=== PATIENT | male | born 1970 ===

== ENCOUNTER 2024-04-16 10:15 | Emergency (ER) | payer MEDICAID, OTHER ==
[~2024-04-16] VITALS: Ht 172.7 cm; Wt 110.0 kg
[2024-04-16] MEDS: DOPamine 1600MCG/ML D5W 250 ML IV SCH (10:39)
[2024-04-16] MEDS: NOREPINEPHRINE 8 MG/250ML KIT 250 ML IV SCH (10:44)
--- NOTE | 2024-04-16 11:04 | DVH ---
EXAM: XR Chest, 1 View CLINICAL INDICATION: post cpr, intubation TECHNIQUE: Frontal view of the chest. COMPARISON: None FINDINGS: LUNGS AND PLEURAL SPACES: Pulmonary congestion and edema. Pneumonia cannot be excluded. No pneumot horax. HEART: Unremarkable. No cardiomegaly. MEDIASTINUM: Unremarkable. Normal mediastinal contour. BONES/JOINTS: Unremarkable. No acute fracture. TUBES, LINES AND DEVICES: The endotracheal tube (ETT) is in satisfactory position. Enteric tube ti p in the stomach. OTHER FINDINGS: . . IMPRESSION: Pulmonary congestion and edema. Pneumonia cannot be excluded.
--- NOTE | 2024-04-16 11:12 | ED.PDOC ---
CPR-HPI HPI Comments 51 y.o male presents to the ED via EMS with ongoing CPR. EMS reports patient was picked up from home, lives with roommate who last seen patient normal and well at 0300. Roommate went into his room this morning and found him unresponsive. EMS reported asystole rhythm on their arrival on scene, initiated CPR, gave 6 rounds of Epi and 2 lidocaine. EMS mentioned patient converted from Asystole to V-Fib, shocked him, went V-Tach briefly and shocked him a second time but went down to PEA. Downtime marked at 8 minutes by paramedics from scene to ED arrival at 1015. No past medical, surgical, social history of allergies reported as roommate did not have any information regarding patient's health. Chief Complaint: CPR Time Seen by MD: 10:15 Reviewed Notes: Nurses Notes, Hot Dip Plater Notes, Medications, Allergies Allergies: Coded Allergies: UNOBTAINABLE (Unverified , 04/16/24) Information Source: Emergency Med Personnel Mode of Arrival: EMS Timing: Hours Duration: Down time prior EMS: (unknnown), Total time prior hopital: (8 minutes) Onset: Unknown Available Hx: Unknown Inital rhythm: V-fib, V-tach, Asystole, PEA Treatment: CPR, Epinephrine Response: Transient return of pulse Associated signs and symptoms: Unknown Past Medical History PAST MEDICAL HISTORY: Unobtainable Surgical History: Unobtainable Family History Family History: Unobtainable Social History Smoker: Unobtainable Alcohol: Unobtainable Drugs: Unobtainable Lives In: Home Unable to Obtain due to: Altered Mental Status Physical Exam Exam Comments unresponsive, General Appearance: Other (unresponsive post CPR, spontaenous breathing absent) HEENT: Other (pupils fixed and dilated ) Neck: Other (intubated) Respiratory: Other (No spontaneous breathing, assisted ventilation with clear lung sounds bilaterally) Cardiovascular: Other (Palpable pulse with CPR, Obtain ROSC. EKG shown cardiac well motion ) Breast Exam: Deferred Gastrointestinal: No Organomegaly, No Pulsatile Mass Genitalia: Deferred Pelvic: Deferred Rectal: Rectal Exam not done Extremities: NOT DONE Neurologic: Other (Pupils fixed and dilated) Cerebellar Function: Other (No spontaneous movement ) Reflexes: Other (No spontaneous movemen) Skin: Pallor Lymphatic: NOT DONE Was a procedure done? 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 Emergent ) Risks/benefits/alt described: No (Patient is unresponsive, no family presented. Emergent ) Notes Procedure attempted, unsuccessful. Right internal jugular done assisted with Ultrasound. tip visible on ultrasound but it will collapse when penetrating. reattempt on the right femoral region but no venous output. No palpable pulse sterile protocol followed Intubation Indication: Altered Mental Status Prep: Preoxygenation Intubation Approach: Orotracheal Intubation size: cm (88) Informed consent obtained: No Risks/benefits/alt described: No Notes emt student intubated under my guidance. successful on the first pass, with CO2 detector activated, bilateral equal BS, no epigastric gurgling, cxr shows proper ET position. Differential Dx CPR Differential Diagnosis: Cardiopulmonary arrest, Cardiogenic shock, Dysrhythmia, Electrolyte disorder, Heart Block, Myocardial Infarction, Pneumothorax, Pulmonary Embolus, Respiratory Failure, Ruptured Aortic Aneurysm, Other (anoxic brain injury, intracranial bleed, overdose) X-Ray, Labs, Meds, VS Vital Signs Date Time Temp Pulse Resp B/P (MAP) Pulse Ox O2 Delivery O2 Flow Rate FiO2 04/16/24 13:09 55/23 04/16/24 12:00 68 04/16/24 11:59 68/35 04/16/24 11:52 67 18 94 Mechanical Ventilator+ 100 100 04/16/24 10:30 61 18 54/27 (36) 100 Lab Test 04/16/24 12:18 04/16/24 12:12 04/16/24 11:45 04/16/24 10:44 Range/Units Blood Gas Specimen Type Arterial Blood Gas Sample Site Left radial Blood Gas Patient Temperature 37.0 Arterial Blood Date Drawn [id number] Arterial Blood pH 6.837 *L 7.350-7.450 Arterial Blood Partial Pressure CO2 120.2 *H 35.0-48.0 mmHg Arterial Blood Partial Pressure O2 180.2 H 83.0-108.0 mmHg Arterial Blood HCO3 19.9 L 21.0-28.0 mmol/L Arterial Blood Oxygen Saturation 98.4 H 94.0-98.0 % Arterial Blood Base Excess -16.4 L -2.0-3.0 mmol/L Arterial Blood Oxyhemoglobin 96.7 94.0-98.0 % Arterial Blood Carboxyhemoglobin 1.1 0.5-1.5 % Arterial Blood Methemoglobin 0.6 0.0-1.5 % Tonio Test Modified Blood Gas Total Hemoglobin 13.70 13.5-17.5 g/dL Blood Gas Set Respiration Rate 18.0 Blood Gas Modality Vent - ac FiO2 % 100.0 Blood Gas Tidal Volume 500.0 Blood Gas PEEP or CPAP 5.0 Blood Gas Critical Value Read Back Yes Blood Gas Notified Whom lolita Fragoso Blood Gas Notified Time [id number] Blood Gas Notified By loulou Ricks POC Glucose 74 70-106 mg/dl Lactic Acid Level 14.2 *H 0.4-2.0 mmol/L Troponin I High Sensitivity 113 *H 48 </=54 ng/L White Blood Count 15.6 H 4.4-10.8 10^3/uL Red Blood Count 4.00 L 4.5-5.90 10^6/uL Hemoglobin 12.1 L 13.5-17.5 g/dL Hematocrit 38.5 L 41.0-53.0 % Mean Corpuscular Volume 96.2 80.0-100.0 fL Mean Corpuscular Hemoglobin 30.3 28.0-32.0 pg Mean Corpuscular Hemoglobin Concent 31.5 L 32.0-36.0 g/dL Red Cell Distribution Width 15.4 H 11.8-14.3 % Platelet Count 136 L 140-450 10^3/uL Mean Platelet Volume 8.2 6.9-10.8 fL Neutrophils (%) (Auto) 68.4 37.0-80.0 % Lymphocytes (%) (Auto) 24.1 10.0-50.0 % Monocytes (%) (Auto) 6.3 0.0-12.0 % Eosinophils (%) (Auto) 0.6 0.0-7.0 % Basophils (%) (Auto) 0.6 0.0-2.0 % Neutrophils # (Auto) 10.7 H 1.6-8.6 10 ^3/uL Lymphocytes # (Auto) 3.8 0.4-5.4 10 ^3/uL Monocytes # (Auto) 1.0 0-1.3 10 ^3/uL Eosinophils # (Auto) 0.1 0-0.8 10 ^3/uL Basophils # (Auto) 0.1 0-0.2 10 ^3/uL Nucleated Red Blood Cells 0.5 % Sodium Level 153 H 136-145 mmol/L Potassium Level 4.2 3.5-5.1 mmol/L Chloride Level 105 98-107 mmol/L Carbon Dioxide Level 24 20-31 mmol/L Anion Gap 24 H 5-15 Blood Urea Nitrogen 20 9-23 mg/dL Creatinine 1.75 H 0.700-1.30 mg/dL Glomerular Filtration Rate Calc 47 >90 mL/min BUN/Creatinine Ratio 11.4 10.0-20.0 Serum Glucose 79 74-106 mg/dL Calcium Level 8.4 L 8.7-10.4 mg/dL Total Bilirubin 0.6 0.2-1.0 mg/dL Aspartate Amino Transferase (AST) 5334 H 13-40 U/L Alanine Aminotransferase (ALT) 5020 H 7-40 U/L Alkaline Phosphatase 77 46-116 U/L Total Protein 5.1 L 5.7-8.2 g/dL Albumin 3.2 3.2-4.8 g/dL Test 04/16/24 10:33 Range/Units Urine Color Yellow Yellow Urine Clarity Clear Clear Urine pH 5.5 5.0-9.0 Urine Specific [place] 1.028 1.001-1.035 Urine Protein Trace H Negative Urine Ketones Trace Negative Urine Blood Negative Negative /uL Urine Nitrite Negative Negative Urine Bilirubin Negative Negative Urine Urobilinogen 2 H Negative mg/dL Urine Leukocyte Esterase Negative Negative /uL Urine RBC 3 0 - 3 /hpf Urine Microscopic WBC < 1 0-3 /HPF Urine Squamous Epithelial Cells Few <5 /hpf Urine Bacteria None seen None Seen /hpf Urine Hyaline Casts Few 0 - 2 /lpf Urine Mucus Few None Seen Urine Glucose 2+ H Normal mg/dL Urine Opiates Screen Neg NEGATIVE Urine Fentanyl Screen Pos NEGATIVE Urine Barbiturates Screen Neg NEGATIVE Urine Phencyclidine Screen Neg NEGATIVE Urine Amphetamines Screen Pos NEGATIVE Urine Benzodiazepines Screen Neg NEGATIVE Urine Cocaine Screen Pos NEGATIVE Urine Cannabinoids Screen Neg NEGATIVE Current Medications Medications (Trade) Dose Ordered Sig/Jared Route Start Time Stop Time Status Last Admin Dopamine HCl/ Dextrose 250 ml @ 20.625 mls/ hr Q12H8M IV 04/16/24 10:45 04/16/24 13:09 Dobutamine HCl/ Dextrose 250 ml @ 10.8 mls/hr Q23H9M IV 04/16/24 11:15 04/16/24 11:59 Time of 1ST Reevaluation: 10:36 Reevaluation 1ST: Unchanged (caridac monitor- sinus rhythm) Reevaluation 2ND: Unchanged (cardiac rhythm, - sinus rhythm) Patient Education/Counseling: Pt Unresponsive Family Education/Counseling: No Family Present Additional Information I reviewed the following notes from patient's past medical encounters: None available The following tests were ordered, and results were reviewed by me: (Labs, XY, EKG)- UA, EKG x3, Troponin x3, Drug screen, UA, PTT, CBC, CMP, [place] Catheter Additional Information was gathered from interviewing the following independent historians: Paramedics I reviewed and agreed with the following test results read by other providers: CT head and CXR I discussed treatment and results with medical personnel Discourse with epi and bicarb give. see code sheet pt was in asystole and PEA when arrived. we were able to obtain ROSC. however, pt remains critical and bp continuously drops, despit on being put on multiple pressors. he also shows evidenc fo systolic heart failure, so dobutamine was also added. in addition he has qualifiers for severe seposis, with shock, so sepsis criteria was also started the results shows that pt was on multiple drugs, which may have contributed to this event. per paramedics, he was last seen well at 3AM. if this were the case, he may have suffered anoxic brain injuries. he has multisystem failure, with heart failure, encephalopathy, renal failure, cardiac failure/arrest/ elevated troponin, liver failure, sever acidosis, hypernatremia, and respiratory failure with hypoxia, hypercapnia Sepsis Sepsis Reasesment Focused Exam Sepsis focused exam: focus exam completed (pt continues to remain unstable, with multiple organ failures), time: (1350) Departure 1 Departure Time of Disposition: 13:51 Impression: Primary Impression: Cardiac arrest Additional Impressions: Systolic heart failure Qualified Codes: I50.21 - Acute systolic (congestive) heart failure Severe sepsis Septic shock Respiratory failure Qualified Codes: J96.01 - Acute respiratory failure with hypoxia; J96.02 - Acute respiratory failure with hypercapnia Liver failure Qualified Codes: K72.01 - Acute and subacute hepatic failure with coma Renal failure Qualified Codes: N17.9 - Acute kidney failure, unspecified Encephalopathy Qualified Codes: G93.41 - Metabolic encephalopathy Hypernatremia Metabolic acidosis Elevated troponin Disposition: ADMITTED INPATIENT Admit to: ICU Condition: Critical Critical Care Note Critical Care Time?: Yes (45 min-critical care time only) Critical care comment: 75 mins of cc time Due to concerns for patients condition deteriorating, the care required my highest level of attention and readiness to intervene. I assessed the patient, reviewed the medical records, ordered the appropriate tests and treatments, then reassessed for results and responsiveness. I communicated with medical personnel and consultants and formulated a plan of care. Total critical care time excludes any procedures Heart Score Heart Score: Heart Score Response (Comments) Value History N/A 0 EKG N/A 0 Age N/A 0 Risk Factors N/A 0 Troponin N/A 0 Total 0 Stability Stability form required: No I personally scribed for CLAUDIO PEMBERTON MD ([facility]) on 04/16/24 at 11:11. Electronically submitted by Patricia Haq ([facility]). I personally scribed for [facility]UD[facility] on 04/16/24 at 11:12. Electronically submitted by Patricia Haq ([facility]). I personally scribed for CLAUDIO PEMBERTON MD ([facility]) on 04/16/24 at 13:02. Electronically submitted by Patricia Haq ([facility]). CLAUDIO PEMBERTON MD Apr 16, 2024 11:11
[2024-04-16] MEDS: SODIUM CHLORIDE 0.9% 2,200 ML IV ONE (11:20)
[2024-04-16] MEDS: EPINEPHrine HCL 1 MG/10 ML SYRG ONE (11:28)
[2024-04-16] MEDS: NOREPINEPHRINE 8 MG/250ML KIT 250 ML IV ONE (11:29)
[2024-04-16 11:35] LABS: Basophils # (auto) 0.1 10 ^3/uL (0-0.2); Basophils % (auto) 0.6 % (0.0-2.0); Eosinophils # (auto) 0.1 10 ^3/uL (0-0.8); Eosinophils % (auto) 0.6 % (0.0-7.0); Hematocrit 38.5 % (41.0-53.0); Hemoglobin 12.1 g/dL (13.5-17.5); Lymphocytes # (auto) 3.8 10 ^3/uL (0.4-5.4); Lymphocytes % (auto) 24.1 % (10.0-50.0); Mean Corpuscular Hemoglobin 30.3 pg (28.0-32.0); Mean Corpuscular Hgb Conc. 31.5 g/dL (32.0-36.0); Mean Corpuscular Volume 96.2 fL (80.0-100.0); Monocytes % (auto) 6.3 % (0.0-12.0); Neutrophils # (auto) 10.7 10 ^3/uL (1.6-8.6); Neutrophils % (auto) 68.4 % (37.0-80.0); Nucleated Red Blood Cells % 0.5 %; Platelet Count (auto) 136 10^3/uL (140-450); Red Cell Distribution Width 15.4 % (11.8-14.3); White Blood Cell 15.6 10^3/uL (4.4-10.8)
[2024-04-16 11:36] LABS: Albumin 3.2 g/dL (3.2-4.8); Alkaline Phosphatase 77 U/L (46-116); Anion Gap 24 (5-15); BUN/Creatinine Ratio 11.4 (10.0-20.0); Blood Urea Nitrogen 20 mg/dL (9-23); Carbon Dioxide 24 mmol/L (20-31); Chloride 105 mmol/L (98-107); Glucose 79 mg/dL (74-106); Potassium 4.2 mmol/L (3.5-5.1)
[2024-04-16 11:37] LABS: Bilirubin, Total 0.6 mg/dL (0.2-1.0)
[2024-04-16 11:49] LABS: Sodium 153 mmol/L (136-145)
[2024-04-16 11:50] LABS: Alanine Aminotransferase 5020 U/L (7-40); Aspartate Aminotransferase 5334 U/L (13-40); Calcium 8.4 mg/dL (8.7-10.4); Total Protein 5.1 g/dL (5.7-8.2)
[2024-04-16 11:51] LABS: Urine Bacteria None Seen /hpf (None Seen)
[2024-04-16 11:52] VITALS: PULSE 67; RESP 18; O2SAT 94
[2024-04-16] MEDS: DOBUTamine 1000MCG/ML 250 ML IV SCH (11:59)
[2024-04-16 12:21] LABS: Cocaine Screen, Urine Pos (NEGATIVE)
[2024-04-16 12:23] LABS: Amphetamine Screen, Urine Pos (NEGATIVE); Barbiturate Scree,Urine Neg (NEGATIVE); Benzodiazephine Screen, Urine Neg (NEGATIVE); Cannabinoid Screen, Urine Neg (NEGATIVE); Opiate Scree,Urine Neg (NEGATIVE); Phencyclidine Screen, Urine Neg (NEGATIVE)
[2024-04-16 12:28] LABS: Lactic Acid w/Reflex 14.2 mmol/L (0.4-2.0)
[2024-04-16 12:32] LABS: Urine Blood Negative /uL (Negative); Urine Clarity Clear (Clear); Urine Color Yellow (Yellow); Urine Hyaline Cast FEW /lpf (0 - 2); Urine Mucus FEW (None Seen); Urine Protein, UAD TRACE (Negative); Urine Specific Gravity 1.028 (1.001-1.035); Urine Squamous Epithelial Cell FEW /hpf (<5); Urine Urobilinogen 2 mg/dL (Negative); Urine WBC < 1 /HPF (0-3); Urine pH 5.5 (5.0-9.0)
[2024-04-16 12:32] LABS: Base Excess -16.4 mmol/L (-2.0-3.0)
[2024-04-16] MEDS: PHENYLEPHRINE IV 250 ML IV SCH (12:45)
[2024-04-16 14:00] VITALS: BP 183/116; PULSE 69; RESP 28; TEMP 89.4; O2SAT 89
[2024-04-16] MEDS ORDERED: SODIUM BICARB 50mEq/50ml Vial 150 ML in D5W 5% 1,000 ML IV ONE (14:00)
[2024-04-16] MEDS ORDERED: SODIUM BICARB 8.4% 50Meq/50ml SYR Vial IV ONE (14:00)
[2024-04-16] MEDS ORDERED: ACETYLCYSTEINE 200MG/ML IV SOL 15,000 MG in D5W 5% 250 ML IV ONE (14:00)
[2024-04-16] MEDS ORDERED: PIPERACILLIN-TAZO 4.5GM 100 ML IV ONE (14:00)
[2024-04-16] MEDS ORDERED: SODIUM CHLORIDE 0.9% 1,000 ML IV ONE (14:00)
[2024-04-16] MEDS: PIPERACILLIN-TAZO 4.5GM 100 ML IV ONE (14:45)
[2024-04-16] MEDS: SODIUM BICARB 50mEq/50ml Vial 50 ML in D5W/SOD CHL 0.45% 1,000 ML IV ONE (14:47)
[2024-04-16] MEDS ORDERED: ACETYLCYSTEINE 200MG/ML IV SOL 5,000 MG in D5W 5% 500 ML IV ONE (15:00)
--- NOTE | 2024-04-16 18:18 | RESUS ---
CODE BOBBI ASSESSSMENT History of Events History of Events: SECURED CODE BOBBI ARRIVED AT 1015 WITH EMS Initial Information Date: Apr 16, 2024 Time: 10:15 Arrest Witnessed: No CPR started by whom: EMS Pre-Hospital Care: ACLS Type of arrest: Cardiac, Adult, Unwitnessed Spontaneous Respirations: No Pulse Present: No Monitoring: ECG, Pulse Oximetry Crash Cart Opened and Supplies: Yes Airway Ventilation Breathing at Onset: Assisted Oxygen Delivery Method: Ambu-Bag Time of first Assisted Ventila: 10:15 Artificial Ventilation: Bag/Mask Intubation Time: 10:25 Intubation Size: 8.0 cuffed Intubated by: BRODIE KENNEY Intubated orally: Yes Tube secured at: 24 CO2 indicator used: Yes Confirmation: Auscultation, Exhaled CO2 Suctioning (Oral/Tracheal): Yes Circulation Circulation #1: Time: 10:16 Pulse Rate (adult): 0 Blood Pressure Systolic: 0 Blood Pressure Diastolic: 0 Circulation Comment: PEA Circulation #2: Time: 10:18 Pulse Rate (adult): 0 Blood Pressure Systolic: 0 Blood Pressure Diastolic: 0 Circulation Comment: PEA Circulation #3: Time: 10:20 Pulse Rate (adult): 0 Blood Pressure Systolic: 0 Blood Pressure Diastolic: 0 Circulation Comment: PEA Circulation #4: Time: 10:22 Pulse Rate (adult): 0 Blood Pressure Systolic: 0 Blood Pressure Diastolic: 0 Circulation Comment: PEA Circulation #5: Time: 10:24 Pulse Rate (adult): 0 Blood Pressure Systolic: 0 Blood Pressure Diastolic: 0 Circulation Comment: PEA Circulation #6: Time: 10:26 Pulse Rate (adult): 59 Blood Pressure Systolic: 153 Blood Pressure Diastolic: 132 Temperature (Fahrenheit): 89.0 (RECTAL F) Circulation Comment: ROSC-DOPAMINE DRIP ORDERED AND STARTED AT 20 MCG/KG/MIN PER DR NIECY Circulation #7: Time: 10:35 Pulse Rate (adult): 0 Blood Pressure Systolic: 0 Blood Pressure Diastolic: 0 Circulation Comment: CODE BLUE #2 BRADYCARDIA THEN LOST PULSES Circulation #8: Time: 10:37 Pulse Rate (adult): 0 Blood Pressure Systolic: 0 Blood Pressure Diastolic: 0 Circulation Comment: VFIB -SHOCKED 150 JOULES Circulation #9: Time: 10:39 Pulse Rate (adult): 0 Blood Pressure Systolic: 0 Blood Pressure Diastolic: 0 Circulation #10: Time: 10:41 Pulse Rate (adult): 68 Blood Pressure Systolic: 48 Blood Pressure Diastolic: 28 Circulation Comment: ROSC- LEVOPHED ORDERED PER DR PEMBERTON Circulation #11: Time: 13:52 Pulse Rate (adult): 0 Blood Pressure Systolic: 0 Blood Pressure Diastolic: 0 Circulation Comment: CODE BLUE #3 LOST PULSE Circulation #12: Time: 13:54 Pulse Rate (adult): 0 Blood Pressure Systolic: 0 Blood Pressure Diastolic: 0 Circulation Comment: PEA Circulation #13: Time: 13:56 Pulse Rate (adult): 0 Blood Pressure Systolic: 0 Blood Pressure Diastolic: 0 Circulation Comment: PEA Circulation #14: Time: 13:58 Pulse Rate (adult): 0 Blood Pressure Systolic: 0 Blood Pressure Diastolic: 0 Circulation Comment: VFIB SHOCKED AT 120 JOULES Circulation #15: Time: 14:00 Pulse Rate (adult): 0 Blood Pressure Systolic: 0 Blood Pressure Diastolic: 0 Circulation Comment: VFIB SHOCKED AT 150 JOULES Circulation #16: Time: 14:02 Pulse Rate (adult): 0 Blood Pressure Systolic: 0 Blood Pressure Diastolic: 0 Circulation Comment: MARIO REVELES 1403 Procedure - IV Procedure - IV : IV start time: 10:20 IV Side: Right IV Location: Forearm Anterior IV Catheter Type: Peripheral IV IV Placed: RN IV Gauge: 20 IV Line Care: Saline Flush Procedure - Intraosseous Site of Intraosseous: Tibia will-medial (LEFT) Intraosseous inserted by: EMS PRIOR TO ARRIVAL Medications & Response Medications and Responses #1: Medication Time: 10:16 ADULT Medications Given ADULT: Epinephrine 1 mg Route of Administration: IO Medications and Responses #2: Medication Time: 10:17 ADULT Medications Given ADULT: Sodium Bacarbinate 50 meq Route of Administration: IO Medications and Responses #3: Medication Time: 10:19 ADULT Medications Given ADULT: Epinephrine 1 mg Route of Administration: IO Medications and Responses #4: Medication Time: 10:24 ADULT Medications Given ADULT: Epinephrine 1 mg, Sodium Bacarbinate 50 meq Route of Administration: IV Medications and Responses #5: Medication Time: 10:35 ADULT Medications Given ADULT: Epinephrine 1 mg, Sodium Bacarbinate 50 meq Route of Administration: IV Medication Comment: KEREN MARTINES #2 Medications and Responses #6: Medication Time: 10:39 ADULT Medications Given ADULT: Epinephrine 1 mg, Sodium Bacarbinate 50 meq Route of Administration: IV Medications and Responses #7: Medication Time: 13:54 ADULT Medications Given ADULT: Epinephrine 1 mg Route of Administration: IV Medications and Responses #8: Medication Time: 13:57 ADULT Medications Given ADULT: Epinephrine 1 mg Route of Administration: IV Nurses Notes [place] Coma Scale Eye Opening: None (1) Bhargav Coma Scale Verbal: None (1) [place] Coma Scale Motor: None (1) Pupil Reaction: Non Reactive (DILATED) Bedside Blood Glucose: 84 Time Code Ended Post Arrest Status: Outcome of code: Unsuccessful Patient pronounced by: DR PEMBERTON Time patient pronounced: 14:03 Family notified: No ([facility]) Code Team Present: FERMIN MYERS RN HOUSE SUPERVISOR, SANDI BYRD, MARIAELENA RN, ESTEPHANIA RN, ANGELO RN, JARVIS RT , BRODIE RT, Fermin Troy R Apr 16, 2024 18:18
[2024-04-16] MEDS ORDERED: ACETYLCYSTEINE 200MG/ML IV SOL 10,000 MG in D5W 5% 1,000 ML IV SCH (19:00)
[2024-04-16] MEDS ORDERED: PIPERACILLIN-TAZOB 3.375GM 100 ML IV SCH (20:00)
== END 2024-04-16 14:52 ==
LOC: ER 10:15 → EDBD 10:15 → ER 14:52
DX: A41.9 Sepsis, unspecified organism (principal); I46.9 Cardiac arrest, cause unspecified; I50.21 Acute systolic (congestive) heart failure; E87.20 Acidosis, unspecified; G93.40 Encephalopathy, unspecified; J96.90 Respiratory failure, unspecified, unspecified whether with hypoxia or hypercapnia; K72.01 Acute and subacute hepatic failure with coma; E87.0 Hyperosmolality and hypernatremia
CPT/HCPCS: 31500; 36415; 36556; 36600; 71045; 80053; 80307; 81001; 82805; 82962; 83605; 84484; 85025; 87040; 87070; 87086; 87205; 92950; 96360; 96361; 99291; J0171; J1250; J1265; J2370